=== PATIENT | female | born 1945 | race Caucasian/White ===

== ENCOUNTER → 2023-10-31 | Outpatient (CLI) | payer MEDICARE ==
[2023-10-31 14:35] LABS: HCT 44.8 % (37.2-46.3); MCH 29.6 pg (27.0-32.0); MCHC 33.5 g/dL (32.0-37.0); MCV 88.5 FL (80.0-97.0); Mean Platelet Volume 10.9 FL (9.5-12.2); NRBC Per 100 WBC 0 X 10*3/uL (0.00-0.01); Platelet Count 297 X 10*3/uL (140-440); RBC 5.06 X 10*6/uL (4.10-5.20); RDW 13.6 % (11.5-14.5); WBC 10.32 X 10*3/uL (4.50-10.00)
[2023-10-31 14:46] LABS: Blood Urea Nitrogen 16.8 mg/dL (9.0-27.0); Carbon Dioxide 24.1 mmol/L (21.6-31.8); Chloride 103 mmol/L (96-109); Potassium 4.2 mmol/L (3.5-5.5); Sodium 140 mmol/L (135-145)
== END | disposition home or self-care (01) ==
LOC: LABPAT 10:54
PROVIDERS: ATTEND Internal Medicine
DX: Z01.818 Encounter for other preprocedural examination (principal); R07.9 Chest pain, unspecified; R06.02 Shortness of breath
CPT/HCPCS: 80051; 82565; 84520; 85027

== ENCOUNTER → 2023-11-18 | Day surgery (SDC) | payer MEDICARE ==
[~2023-11-18] MED LIST: ALPRAZolam 0.25 MG TAB PO PRN; ALPRAZolam 0.5 MG TAB PO PRN; ASPIRIN 325 MG TAB PO STA; HEPARIN SODIUM 1,000 UN/ML (10ML VL) ONE; IOPAMIDOL-370 100ML BTL INJ ONE; LIDOCAINE 1% INJ 10MG/ML (20 ML MDV) ONE; LIDOCAINE 1% INJ 10MG/ML (20 ML MDV) SQ ONE; MIDAZOLAM 2 MG/2 ML VIAL IVP ONE; NITROGLYCERIN SL TABS 0.4 MG TAB SUBLINGUAL PRN; SODIUM CHLORIDE 0.9% 1,000 ML in EMPTY BAG 1 BAG IV SCH; VERAPAMIL 2.5 MG/ML 2 ML AMP ONE; VERAPAMIL SYRINGE (5 MG/10 ML) INTRAARTER ONE; fentaNYL (PF) 50 MCG/ML 2 ML AMP IVP ONE; fentaNYL (PF) 50 MCG/ML 2 ML AMP ONE
[2023-11-18 10:16] VITALS: RESP 16; TEMP 98.3
[2023-11-18] MEDS: HEPARIN SODIUM 1,000 UN/ML (10ML VL) IV ONE ×2 (10:53→11:08)
--- NOTE | 2023-11-18 11:31 | P.CARDCATH ---
Description of Procedure: PROCEDURES PERFORMED: Left heart catheterization, bilateral coronary angiography, ultrasound guided arterial access, iFR LAD INDICATION: Abnormal stress test CONSENT:I have discussed the risks, benefits and alternative therapies for the above-mentioned procedure and for both sedation/analgesia as well as necessary blood product administration, if indicated, as they pertain to this patient. The patient has indicated understanding and acceptance of the risks and procedures discussed. PROCEDURE: After the risks, benefits and alternatives of the above mentioned procedure explained in detail with the patient, informed consent was obtained. Patient was taken to the catheterization lab and prepped and draped in usual fashion. Ultrasound guidance was used to assess for arterial access. 1% lidocaine was used to anesthetize the right radial artery. A 6-[place] sheath was placed in the right radial artery using modified Seldinger technique and ultrasound guidance. Left coronary angiography was performed with a 5-[place] JL 3.5 catheter and right coronary angiography was performed with a 5-[place] FR5 catheter in various views. A 5-[place] FR5 catheter was inserted into the left ventricle and pressure measurements were obtained. There was a very small circumflex with concern of possible anomalous circumflex and therefore an AR-2 was used to evaluate for any anomalous circumflex coming from the right coronary cusp however was not viewed and appeared to be mainly supplied by a large PLV branch. Patient did have moderate disease in the apical LAD at the site of her abnormal stress test and therefore decision was made to perform iFR. Heparin was given. A 6 [place] CLS 3.0 guide was used to engage the LAD. A 0.014 pressure wire was advanced into the left main and normalized. It was then advanced 1 cm distal to the apical LAD lesion just after diagonal branch. This was abnormal at 0.83 and was repeated and was still abnormal at 0.84. There was not any major gradient across any of the lesions with just the slow decrease in gradient appeared related to multiple mild to moderate disease. Given small caliber size and likely combination of multiple diffuse disease, medical therapy was recommended. The right radial sheath was removed and a TR band was placed with hemostasis achieved. The patient tolerated the procedure well. Patient was transported back to the post catheterization holding area in stable condition. Conscious Sedation: Patient was monitored under the direct supervision of myself for conscious sedation using Versed and fentanyl for a total duration of 28 minutes HEMODYNAMICS: Aorta: 129/55 LV: 131/5, LVEDP 16, gradient across the valve 9 mmHg SELECTIVE CORONARY ARTERIOGRAPHY: LEFT MAIN: The left main is a large caliber vessel which bifurcates into the LAD and circumflex. There is no significant stenosis. LEFT ANTERIOR DESCENDING CORONARY ARTERY: LAD is a large caliber vessel which wraps around to the apex. There is mild proximal 20 to 30% stenosis, mid to apical LAD 40 to 50% stenosis with some degree of bridging right after the diagonal branch. LEFT CIRCUMFLEX CORONARY ARTERY: Left circumflex is a small caliber vessel without significant stenosis and majority of circumflex territory appears covered by PLV RIGHT CORONARY ARTERY: The right coronary artery is a large caliber vessel which gives off a PDA and PLV branch and is the dominant vessel. There is no significant stenosis. FINAL IMPRESSION: 1. Mild to moderate CAD as described above including 20 to 30% proximal LAD, 40 to 50% mid to apical LAD stenosis 2. Abnormal iFR LAD however gradual gradient across entire LAD, appears related to combination of multiple mild to moderate disease 3. Normal left sided filling pressures PLAN: 1. Aggressive risk factor modification per most recent ACC/AHA guidelines. 2. iFR small however appears related to multiple mild to moderate stenoses and at worst 40 to 50% which is small caliber and additionally has bridging. Attempt medical therapy with Norvasc and monitor response.
[2023-11-18 18:36] VITALS: BP 111/61; PULSE 71
== END ==
LOC: CATHCVL 09:03
PROVIDERS: ATTEND Internal Medicine
DX: I25.10 Atherosclerotic heart disease of native coronary artery without angina pectoris (principal); J44.9 Chronic obstructive pulmonary disease, unspecified; E78.5 Hyperlipidemia, unspecified; F17.290 Nicotine dependence, other tobacco product, uncomplicated; Z79.82 Long term (current) use of aspirin; Z79.899 Other long term (current) drug therapy
CPT/HCPCS: 93458; 93799; 76937; C1887; C1769 ×2; C1894; J2250; J2001; J3010; J1644; Q9967